=== PATIENT | female | born 1995 | race Caucasian/White ===

== ENCOUNTER 2022-12-13 13:24 | Outpatient (CLI) | payer SELFPAY ==
[2022-12-13 15:08] LABS: Appearance,Urine Cloudy (Clear); Bilirubin,Urine Negative (Negative); Blood,Urine Negative (Negative); Color,Urine Yellow; Glucose,Urine (UA) Negative (Negative); Ketones,Urine 4+ (Negative); Protein,Urine 2+ (Negative); Specific Gravity,Urine >1.030 (1.001-1.035)
[2022-12-13 15:09] LABS: Leukocyte Esterase,Urine Negative (Negative); Nitrite,Urine Negative (Negative)
[2022-12-13 15:10] LABS: Bacteria,Urine Few /hpf; Hyaline Casts,Urine 4 /lpf (0-2); Mucus,Urine Many /hpf; RBC,Urine 1 /hpf (0-5); Squamous Epithelial Cell,Urine 10 /hpf (0-4); WBC,Urine 6 /hpf (0-5)
[2022-12-13] MEDS ORDERED: ONDANSETRON 4 MG/2 ML VIAL IVP STA (15:33)
[2022-12-13] MEDS: DEXTROSE 5%-LACTATED RINGERS 1,000 ML IV ONE ×3 (15:57→17:34)
[2022-12-13] MEDS ORDERED: CALCIUM CARBONATE 500 MG CHEWABLE PO PRN (17:55)
[2022-12-13 19:05] VITALS: BP 119/60; PULSE 64; RESP 16; TEMP 98.4
--- NOTE | 2023-01-08 10:59 | P.MSEPDOC ---
Presenting Problems - Arrival Data Date of Arrival on Unit: 12/13/22 Time of Arrival on Unit: 14:30 Mode of Transport: Ambulatory - Complaint OB-Reason for Admission/Chief Complaint: Acute Nausea/Vomiting Medical History - Information : 1 Para: 0 Number of Living Children: 0 - Gestational Age Gestational Age by CARMEN (wks/days): 25 Weeks and 3 Days Review of Systems - Review of Systems Constitutional: No problems Breast: No problems ENT: No problems Cardiovascular: No problems Respiratory: No problems Gastrointestinal: No problems Genitourinary: No problems Musculoskeletal: No problems Neurological: No problems Skin: No problems Vital Signs - Temperature Temperature: 98.4 F Temperature Source: Axillary - Pulse Right Sitting Brachial Pulse Rate: 64 Pulse Assessment Method: Automatic Cuff - Respirations Respiratory Rate: 16 Oxygen Delivery Method: Room Air O2 Sat by Pulse Oximetry: 99 - Blood Pressure Right Arm Sitting Blood Pressure: 119/60 Blood Pressure Mean: 79 Blood Pressure Source: Automatic Cuff Physician Notification - Physician Notified Physician Notified Date: 12/13/22 Physician Notified Time: 17:00 Physician: Esteban Lyn Order Received: Yes (IV hydrate) Maternal Triage Index - Maternal Triage Index Presenting for scheduled procedure w/no complaint: No - Stat/Priority 1 Stat Priority 1: No - Urgent/Priority 2 Urgent Priority 2: No - Prompt/Priority 3 Prompt Priority 3: No - Non-Urgent/Priority 4 Non-Urgent Priority 4: Yes Criteria Met for Priority 4: N&V Disposition - Disposition OB Disposition: Observe, Triage, Discharge to home Discharge Date: 12/13/22 Discharge Time: 18:30 I agree with the RN Medical Screening Exam: Yes Physician's MSE Comment: I have neither seen nor examined the patient. Case reviewed; plan agreed upon as documented in EMR&OBIX.: Yes Diagnosis: RELATED CONDITIONS, UNSPECIFIED, SECOND TRIMESTER
== END 2022-12-13 18:30 | disposition home or self-care (01) ==
LOC: FBPOP 13:24
PROVIDERS: ATTEND Obstetrics & Gynecology
DX: O21.9 Vomiting of pregnancy, unspecified (principal); Z3A.25 25 weeks gestation of pregnancy
CPT/HCPCS: 99204; 96361; 96365; 96374; 96375; 81001; J2405

== ENCOUNTER 2023-12-19 10:36 | Observation (INO) | payer OTHER ==
--- NOTE | 2023-12-19 11:19 | ED ---
Chest Pain HPI - General Chief Complaint: Chest Pain Stated Complaint: Chest Pressure Time Seen by Provider: 12/19/23 10:48 Source: patient, EMS, RN notes reviewed Mode of arrival: EMS Limitations: no limitations - History of Present Illness Initial Comments: This is a 28-year-old female who presents to the emergency department for chest pain. Patient states that she has felt generally weak and unwell over the last couple of days. Around 8 AM she started to develop centralized chest pain and nausea. Pain is described as a pressure sensation. She was given Zofran and nitroglycerin by EMS without any relief in symptoms. Patient bradycardic with a heart rate in the 30s. States that her heart rate is usually in the 90s. States that she feels very dizzy and lightheaded. She has mild shortness of breath. MD Complaint: chest pain - Related Data Home Medications Medication Instructions Recorded Confirmed No Known Home Medications 12/13/22 12/19/23 Allergies Allergy/AdvReac Type Severity Reaction Status Date / Time No Known Allergies Allergy Verified 12/19/23 11:30 Review of Systems ROS Statement: Those systems with pertinent positive or pertinent negative responses have been documented in the HPI. ROS Other: All systems not noted in ROS Statement are negative. Past Medical History Past Medical History: No Reported History History of Any Multi-Drug Resistant Organisms: None Reported Past Surgical History: No Surgical Hx Reported Smoking Status: Current every day smoker Past Alcohol Use History: Occasional Past Drug Use History: Marijuana General Exam Limitations: no limitations General appearance: alert, in distress Head exam: Present: atraumatic, normocephalic, normal inspection Respiratory exam: Present: normal lung sounds bilaterally. Absent: respiratory distress, wheezes, rales, rhonchi, stridor Cardiovascular Exam: Present: normal rhythm, bradycardia GI/Abdominal exam: Present: soft, normal bowel sounds. Absent: distended, tenderness, guarding, rebound, rigid Neurological exam: Present: alert, oriented X3, CN II-XII intact Psychiatric exam: Present: normal affect, normal mood Skin exam: Present: warm, dry, intact, normal color. Absent: rash Course Vital Signs 12/19/23 12/19/23 12/19/23 10:39 11:55 12:26 Temperature 97.9 F Pulse Rate 36 L 111 H 97 Respiratory 14 18 18 Rate Blood Pressure 137/78 146/91 144/91 O2 Sat by Pulse 99 99 Oximetry 12/19/23 13:55 Temperature Pulse Rate 43 L Respiratory 18 Rate Blood Pressure 112/77 O2 Sat by Pulse 97 Oximetry Chest Pain MDM - MDM This is a 28 year old female who presents to the emergency department for chest pain. Was pt. sent in by a medical professional or institution? @ -No Did you speak to anyone other than the patient for history? @ -No Did you review nursing and triage notes? @ -Yes, and I agree, it is accurate with regards to the patient's symptoms. Were old charts reviewed? @ -No Differential Diagnosis? @ -Differential Chest Pain: Stable Angina, Unstable Angina, STEMI, NSTEMI Aortic Dissection, Pneumothorax, Musculoskeletal, Esophageal Spasm GERD, Cholecystitis, Pancreatitis, Zoster, this is not meant to be an all-inclusive list. EKG interpreted by me (3pts min.)? @ -EKG interpreted by me demonstrating the following: Sinus bradycardia. Ventricular rate 40 bpm, GA interval 145 ms, QRS duration 106 ms, QTc 485 ms. X-rays interpreted by me (1pt min.)? @ -Chest x-ray obtained, my interpretation identifies no localized consolida tions or infiltrates. CT interpreted by me (1pt min.)? @ -Not obtained U/S interpreted by me (1pt. min.)? @ -Not obtained What testing was considered but not performed? (CT, X-rays, U/S, labs)? Why? @ -None What meds were considered but not given? Why? @ -None Did you discuss the management of the patient with other professionals? @ -Yes, Dr. Miller, who accepts the patient for admission. Did you reconcile home meds? @ -No Was smoking cessation discussed for >3mins.? @ -No Was critical care preformed (if so, how long)? @ -No Were there social determinants of health that impacted care today? How? (Homelessness, low income, unemployed, alcoholism, drug addiction, transportation, low edu. Level, literacy, decrease access to med. care, half-way, rehab)? @ -No Was there de-escalation of care discussed even if they declined? (Discuss DNR or withdrawal of care, Hospice)? @ -No What co-morbidities impacted this encounter? (DM, HTN, Smoking, COPD, CAD, Cancer, CVA, Hep., AIDS, mental health diagnosis, sleep apnea, morbid obesity)? @ -None Was patient admitted / discharged? @ -Admitted. Lab work demonstrates leukocytosis with a white blood cell count of 12.9. She has mild hypokalemia with a potassium of 3.4. Patient had fairly symptomatic bradycardia on arrival with her heart rate in the mid to low 30s. QT prolonged at 555. 0.5 mg of atropine administered with good response. Patient was given multiple antiemetics with only temporary improvement in nausea. She also continued to complain of chest discomfort and feeling lightheaded and dizzy. About 2 hours after being given the atropine she started to become bradycardic again with heart rate dropping back into the 30s. Patient admitted to medicine for observation of symptomatic bradycardia and chest pain. Serial troponins ordered. Consult placed for cardiology. Case discussed with ED attending Dr. Duong. Undiagnosed new problem with uncertain prognosis? @ -None Drug Therapy requiring intensive monitoring for toxicity (Heparin, Nitro, Insulin, Cardizem)? @ -None Were any procedures done? @ -None Diagnosis/symptom? @ -Symptomatic bradycardia, chest pain Acute, or Chronic, or Acute on Chronic? @ -Acute Uncomplicated (without systemic symptoms) or Complicated (systemic symptoms)? @ -Complicated Side effects of treatment? @ -None Exacerbation, Progression, or Severe Exacerbation] @ -Not applicable Poses a threat to life or bodily function? @ -Yes, can lead to life threatening arrhythmias Disposition Clinical Impression: Chest pain, Symptomatic bradycardia Disposition: ADMITTED IP TO THIS HOSP
[2023-12-19] MEDS: ATROPINE SULFATE 0.1 MG/ML 10ML SYRINGE IV STA ×2 (11:45→12:25)
[2023-12-19] MEDS: ONDANSETRON 4 MG/2 ML VIAL IVP STA (11:46)
[2023-12-19] MEDS: KETOROLAC 15 MG/ML 1 ML VIAL IVP STA (11:46)
[2023-12-19] MEDS: SODIUM CHLORIDE 0.9% 1,000 ML IV STA (11:54)
[2023-12-19 12:09] LABS: ALT 10 U/L (4-34); AST 14 U/L (14-36); African American GFR (CKD) >90 (>60 ml/min/1.73 sqM); Albumin 4.2 g/dL (3.5-5.0); Alkaline Phosphatase 63 U/L (38-126); Anion Gap 7 mmol/L; Blood Urea Nitrogen 14 mg/dL (7-17); Carbon Dioxide 24 mmol/L (22-30); Chloride 108 mmol/L (98-107); Glucose 155 mg/dL (74-99); Magnesium 1.8 mg/dL (1.6-2.3); Non-African American GFR(CKD) >90 (>60 ml/min/1.73 sqM); Potassium 3.4 mmol/L (3.5-5.1); Sodium 139 mmol/L (137-145); Total Bilirubin 0.7 mg/dL (0.2-1.3); Total Protein 6.9 g/dL (6.3-8.2)
[2023-12-19 12:15] LABS: Basophils # (A) 0.1 k/uL (0-0.2); Basophils % (A) 0 %; Eosinophils % (A) 0 %; HCT 39.5 % (34.0-46.0); HGB 12.9 gm/dL (11.4-16.0); Lymphocytes # (A) 0.9 k/uL (1.0-4.8); Lymphocytes % (A) 7 %; MCH 30.6 pg (25.0-35.0); MCHC 32.7 g/dL (31.0-37.0); MCV 93.5 fL (80.0-100.0); Mean Platelet Volume 10.2; Monocytes # (A) 0.5 k/uL (0-1.0); Monocytes % (A) 4 %; Neutrophils # (A) 11.3 k/uL (1.3-7.7); Neutrophils % (A) 88 %; Platelet Count 176 k/uL (150-450); RBC 4.23 m/uL (3.80-5.40); RDW 12.6 % (11.5-15.5); WBC 12.9 k/uL (3.8-10.6)
[2023-12-19] MEDS: PROCHLORPERAZINE INJ 10 MG/2 ML VIAL IVP STA (12:23)
[2023-12-19] MEDS: SODIUM CHLORIDE 0.9% 500 ML 500 ML IV STA (12:25)
[2023-12-19 12:36] LABS: Partial Thromboplastin Time 22.3 sec (22.0-30.0); Prothrombin Time 11.2 sec (10.0-12.5)
[2023-12-19] MEDS ORDERED: HYDROmorphone 0.5 MG/0.5 ML SYRINGE IVP STA (13:29)
--- NOTE | 2023-12-19 13:35 | XR ---
EXAMINATION TYPE: XR chest 2V DATE OF EXAM: 12/19/2023 1:04 PM COMPARISON: None. CLINICAL INDICATION: Female, 28 years old with history of Chest Pain, TECHNIQUE: XR chest 2V view(s) obtained. FINDINGS: The heart size is normal. The pulmonary vasculature is normal. The lungs are clear. IMPRESSION: 1. No acute pulmonary process. [facility], , 12/19/2023 1:33 PM
[2023-12-19] MEDS: FAMOTIDINE 20 MG/2 ML VIAL IV STA (13:46)
[2023-12-19] MEDS: METOCLOPRAMIDE 5 MG/ML 2 ML VIAL IVP STA (13:53)
[2023-12-19] MEDS: MORPHINE SULFATE 4 MG/ML SYRINGE IVP STA (13:54)
[2023-12-19] MEDS: POTASSIUM CHLORIDE 20 MEQ in WATER FOR INJECTION 1 100ML.BAG IVPB STA (14:23)
[2023-12-19 14:26] LABS: Appearance,Urine Clear (Clear); Bacteria,Urine Rare /hpf; Bilirubin,Urine Negative (Negative); Blood,Urine Trace (Negative); Color,Urine Yellow; Glucose,Urine (UA) Trace (Negative); Ketones,Urine 3+ (Negative); Leukocyte Esterase,Urine Negative (Negative); Mucus,Urine Many /hpf; Nitrite,Urine Negative (Negative); PH, Urine 6.5 (5.0-8.0); Protein,Urine 1+ (Negative); RBC,Urine 2 /hpf (0-5); Specific Gravity,Urine 1.027 (1.001-1.035); Squamous Epithelial Cell,Urine 4 /hpf (0-4); Urobilinogen,Urine <2.0 mg/dL (<2.0); WBC,Urine 3 /hpf (0-5)
[2023-12-19] MEDS ORDERED: KETOROLAC 15 MG/ML 1 ML VIAL IVP PRN (14:33)
[2023-12-19] MEDS ORDERED: ACETAMINOPHEN TAB 325 MG TAB PO PRN (14:33)
[2023-12-19] MEDS ORDERED: NALOXONE 0.4 MG/ML 1 ML VIAL IV PRN (14:33)
[2023-12-19] MEDS ORDERED: MORPHINE SULFATE 4 MG/ML SYRINGE IV PRN (14:33)
[2023-12-19] MEDS ORDERED: ONDANSETRON 4 MG/2 ML VIAL IVP PRN (14:33)
[2023-12-19 14:45] LABS: Amphetamine Screen,Urine Detected (NotDetected); Barbiturate Screen,Urine Not Detected (NotDetected); Benzodiazepines Screen,Urine Not Detected (NotDetected); Cocaine Screen,Urine Not Detected (NotDetected); Methadone Screen, Urine Not Detected (NotDetected); Opiate Screen,Urine Detected (NotDetected); Oxycodone Screen, Urine Not Detected (NotDetected); Phencyclidine Screen,Urine Not Detected (NotDetected); Tricyclic Antidepressant,Urine Not Detected (NotDetected); Urn Cannabinoid Scrn Detected (NotDetected)
--- NOTE | 2023-12-19 15:37 | P.HPIM ---
History of Present Illness H&P Date: 12/19/23 History of Presenting Illness: Patient is a 28-year-old femalewith a past medical history of nicotine dependence. Pt reports recurrent episodes of GI upset accompanied by diffuse abdominal pain and persistant nausea and anorexia with inability to eat for a week or more at a time. Patient reports over the past few days she has again began to experience a diffuse abdominal pain, inability to eat, and persistent nausea. She reports the symptoms are similar to previous episodes but states worsening over the past few days and today she began experiencing chest pain accompanied by dizziness/lightheadedness so she came to the emergency department for evaluation. She denies having any recent fevers, chills, diaphoresis, palpitations, shortness of breath, cough or congestion, vomiting, hematemesis, constipation, diarrhea, melena, hematochezia, or experiencing any changes in her difficulties with urinary function. On arrival to our facility, patient underwent evaluation in the emergency department. Vital signs upon arrival show blood pressure 137/78, heart rate 36, respiratory rate 14, temp 97.9 F, and SpO2 of 99% on room air. EKG completed showing sinus bradycardia at 40 bpm with a prolonged QT/QTc of 555/485 ms. Chest x-ray negative for acute cardiopulmonary process. Labs completed and reviewed. CBC showing leukocytosis with WBC count of 12.9. Coagulation profile normal findings. BMP showing hypokalemia with potassium of 3.4 and hyperchloremia with chloride of 108. Blood glucose 155. Lactic acid 1.5. Magnesium 1.8. Liver profile unremarkable. Troponin less than 0.012. TSH 1.610. Urinalysis negative for infection positive for protein, glucose, and ketones. Urine drug screen positive for opiates, amphetamines, and marijuana. Urine hCG negative. Patient received atropine 0.5 mg IVP x 1 dose and was admitted under our services with consultation to cardiology for symptomatic bradycardia and chest pain and gastroenterology. Review of systems: P.ertinent positives and negatives as discussed in HPI, a complete review of systems was performed and all other systems are negative. Physical exam: Vital signs reviewed and stable. General: Nontoxic, no distress and appears stated age. Derm: Skin warm and dry, normal coloration for ethnicity. Head: Atraumatic, normocephalic and symmetric. Eyes: EOM's intact, no lid lag, and anicteric sclera Mouth: no lip lesions, mucus membranes moist Cardiovascular: Bradycardic rate and regular rhythm with normal S1S2, no murmur, positive posterior tibial pulses bilaterally, and cap refill < 2 seconds. Lungs: Respirations even, regular, and unlabored on room air. Lungs CTA bilaterally, no rhonchi, no rales, no wheezing, and no accessory muscle usage. Abdominal: soft, diffuse tenderness upon palpation, no guarding, no appreciable organomegaly Ext: ROM intact. No gross muscle atrophy, no edema, no contractures Neuro: Speech clear, face symmetrical and CN II-XII grossly intact with no noted focal neuro deficits Psych: Alert and oriented to person, place, time, and situation. Appropriate and pleasant affect. Assessment and Plan of Care: Symptomatic Bradycardia Prolonged QT Chest pain, dizzinenss and lightheadedness -Patient received atropine 0.5 mg IVP x 1 dose in the emergency department. -Consult placed to cardiology. -Patient to remain on continuous telemetry monitoring. -Avoid all QT prolonging medications. -TSH normal findings at 1.610. Abdominal pain Nausea and anorexia -Order placed for CT abdomen and pelvis with IV contrast -Tigan 200 mg IM every 6 hours as needed for nausea and vomiting, avoid QT prolonging antiemetics. -Carafate 1 g 4 times daily. -Clear liquid diet. -Consult placed to gastroenterology, discussed with gastroenterology BATCH OPERATOR. -Urine drug screen positive for amphetamines, opiates, and marijuana. Patient denies history of IVDA. Nicotine dependence -Recommend smoking cessation. Order placed for nicotine patch 14 mg daily. Data and imaging reviewed As stated above in HPI The patient is admitted with an anticipated greater than 2 midnight stay for evaluation of symptomatic bradycardia CODE STATUS: Full code DVT prophylaxis: SCDs Anticipated discharge date: Pending clinical course Anticipated discharge place: Home Patient was seen independently by Nurse Practitioner. This document was prepared using [employer] dictation software. Please allow for errors in courier while rare they do occur. Donovan Lovell NP rendered care for this patient independently, reviewed the findings and plan as documented in the note above. I did not physically speak with or examine the patient on this date. Past Medical History Past Medical History: No Reported History History of Any Multi-Drug Resistant Organisms: None Reported Past Surgical History: No Surgical Hx Reported Smoking Status: Current every day smoker Past Alcohol Use History: Occasional Past Drug Use History: Marijuana Medications and Allergies Home Medications Medication Instructions Recorded Confirmed Type No Known Home Medications 12/13/22 12/19/23 History Allergies Allergy/AdvReac Type Severity Reaction Status Date / Time No Known Allergies Allergy Verified 12/19/23 11:30 Physical Exam Vitals: Vital Signs Temp Pulse Resp BP Pulse Ox 12/19/23 13:55 43 L 18 112/77 97 12/19/23 12:26 97 18 144/91 12/19/23 11:55 111 H 18 146/91 99 12/19/23 10:39 97.9 F 36 L 14 137/78 99 Intake and Output 12/19/23 12/19/23 12/19/23 06:59 14:59 22:59 Other: Weight 81.647 kg Results CBC & Chem 7: 12/19/23 12:08 12/19/23 11:42 Labs: Abnormal Lab Results - Last 24 Hours (Table) 12/19/23 12/19/23 12/19/23 Range/Units 11:42 12:08 14:17 WBC 12.9 H (3.8-10.6) k/uL Neutrophils # 11.3 H (1.3-7.7) k/uL Lymphocytes # 0.9 L (1.0-4.8) k/uL Potassium 3.4 L (3.5-5.1) mmol/L Chloride 108 H (98-107) mmol/L Glucose 155 H (74-99) mg/dL Urine Protein 1+ H (Negative) Urine Glucose (UA) Trace H (Negative) Urine Ketones 3+ H (Negative) Urine Blood Trace H (Negative) Urine Bacteria Rare H (None) /hpf Urine Mucus Many H (None) /hpf Urine Opiates Screen Detected H (NotDetected) Ur Amphetamines Screen Detected H (NotDetected) U Marijuana (THC) Screen Detected H (NotDetected)
--- NOTE | 2023-12-19 16:20 | CT ---
EXAMINATION TYPE: CT abdomen pelvis w con DATE OF EXAM: 12/19/2023 4:09 PM COMPARISON: None CLINICAL INDICATION: Female, 28 years old with history of abdominal pain, anorexia; abdominal pain, a norexia and nausea TECHNIQUE: Axial CT abdomen pelvis w con;Sagittal and coronal reformats were created on a separate w orkstation. Contrast used:80ml mL of Isovue 300 with IV Contrast, (none if empty) Oral contrast used: without Oral Contrast (none if empty) CT DLP: 814.7 mGycm, Automated exposure control for dose reduction was used. FINDINGS: LOWER CHEST: Unremarkable ABDOMEN LIVER: Unremarkable GALLBLADDER AND BILE DUCTS: Unremarkable. PANCREAS: Unremarkable. SPLEEN: Unremarkable. ADRENAL GLANDS: Unremarkable. KIDNEYS AND URETERS: No evidence of hydronephrosis or renal calculus. The ureters are unremarkable. PELVIS BLADDER: No evidence for wall thickening or mass given limitations of exam. REPRODUCTIVE: Unremarkable. ABDOMEN & PELVIS STOMACH AND BOWEL: No evidence of bowel obstruction. Mild inflammation changes thought to be present along the right colon ascending colon specifically. The appendix is visualized and normal. PERITONEUM/RETROPERITONEUM: No evidence of pneumoperitoneum or free fluid. VASCULATURE: No evidence of aortic aneurysm. MUSCULOSKELETAL: No acute osseous abnormalities LYMPH NODES: No gross evidence for lymphadenopathy. SOFT TISSUE/ABDOMINAL WALL: Unremarkable IMPRESSION: Mild colitis suggested involving the ascending colon. The appendix is normal. No other acute abdomina l process identified.[facility], , 12/19/2023 4:17 PM
[2023-12-19] MEDS: SODIUM CHLORIDE 0.9% 1,000 ML IV SCH (18:08)
[2023-12-19] MEDS: NICOTINE 14MG/24HR PATCH TRANSDERM SCH (19:08)
[2023-12-19] MEDS: SUCRALFATE 1 GM TAB PO SCH (23:15)
[2023-12-20] MEDS: TRIMETHOBENZAMIDE 100 MG/ML 2 ML VIAL IM PRN (00:41)
[2023-12-20 07:06] VITALS: RESP 18
[2023-12-20] MEDS ORDERED: PANTOPRAZOLE 40 MG/10 ML VIAL IV SCH (09:00)
[2023-12-20] MEDS: hydroCHLOROthiazide 12.5 MG CAP PO SCH (09:12)
--- NOTE | 2023-12-20 09:41 | P.CRDCN ---
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 She has a past medical history of preeclampsia d iagnosed 1 year ago with her . We have been asked to evaluate her for symptomatic bradycardia and chest pain. Patient gives history that yesterday she developed a hard time breathing and then developed tingling of her extremities, following that she developed vomiting and was not able to keep anything down. Patient states that she has had problems with this in the past and no etiology was determined. She states she still has some nausea this morning. Regarding her blood pressure, she states she did have preeclampsia and blood pressure has been running high. She does vape both tobacco and marijuana and recommended that she quit vaping. She denies any alcohol use and no drug us e. She continues to have some nausea and abdominal pain today. No diarrhea today. Discussed use of event monitor and possible outpatient stress testing. Patient is also complaining of skin lesions that she has had all over her body for the past month. EKG: Sinus rhythm at 40 bpm with QTc prolongation Chest x-ray: No acute process CT of the abdomen pelvis: Mild colitis in the ascending colon Laboratory studies: Troponin negative x 3. WBC 12.9, hemoglobin 12.9, sodium 139, potassium 3.4, magnesium 1.8, creatinine 0.56. TSH 1.61. hCG negative. Urine drug screen positive for amphetamines, opiates, marijuana. Home cardiac medications: None Review Of Systems: At the time of my exam: CONSTITUTIONAL: Denies fever or chills. HEENT: Denies blurred vision, vision changes, or eye pain. Denies hemoptysis CARDIOVASCULAR: Denies chest pain. Denies orthopnea. Denies PND. Denies palpitations RESPIRATORY: Denies shortness of breath. GASTROINTESTINAL: Reports abdominal discomfort. Denies nausea or vomiting. HEMATOLOGIC: Denies bleeding disorders. GENITOURINARY: Denies any blood in urine. SKIN: Denies puritis. Denies rash. Physical examination: Gen: This is a 28-year-old female in no acute distress VS: reviewed HEENT: Head is atraumatic, normocephalic. Pupils equal, round. Sclerae is anicteric. NECK: Supple. No JVD. LUNGS: Clear to auscultation. No wheezes or rhonchi. No intercostal retractions. HEART: Regular rate and rhythm. No murmur. ABDOMEN: Soft No tenderness. EXTREMITIES: No pedal edema. No calf tenderness. NEUROLOGICAL: Patient is awake, alert and oriented x3. Assessment: Atypical chest pain, acute coronary syndrome ruled out Bradycardia Abdominal discomfort, nausea, anorexia Tobacco use and dependence Drug screen positive for opiates, amphetamines and marijuana Skin lesions Plan: Avoid all AV gamal blockers Start patient on hydrochlorothiazide 12.5 mg daily Discussed lifestyle changes Patient is agreeable to stop vaping Obtain 2-D echocardiogram and Doppler study to assess cardiac structure and function Patient is cleared for discharge and may follow-up in the office in 1 to 2 weeks and will discuss event monitor to further assess bradycardia and also outpatient stress testing. Thank you kindly for this consultation. Nurse practitioner note has been reviewed, I agree with documented findings and plan of care. Patient was seen and examined. Past Medical History Past Medical History: No Reported History History of Any Multi-Drug Resistant Organisms: None Reported Past Surgical History: No Surgical Hx Reported Smoking Status: Current every day smoker Past Alcohol Use History: Occasional Past Drug Use History: Marijuana Medications and Allergies Home Medications Medication Instructions Recorded Confirmed Type No Known Home Medications 12/13/22 12/19/23 History Allergies Allergy/AdvReac Type Severity Reaction Status Date / Time No Known Allergies Allergy Verified 12/19/23 11:30 Physical Exam Vitals: Vital Signs Temp Pulse Pulse Resp BP Pulse Ox 12/20/23 07:36 40 L 12/20/23 07:05 42 L 18 150/91 99 12/20/23 05:17 48 L 16 99/58 99 12/20/23 00:50 53 L 16 113/70 100 12/19/23 22:00 49 L 18 126/79 97 12/19/23 21:00 59 L 18 108/64 97 12/19/23 20:00 50 L 18 111/74 96 12/19/23 19:00 64 18 137/90 96 12/19/23 16:41 40 L 18 150/100 98 12/19/23 13:55 43 L 18 112/77 97 12/19/23 12:26 97 18 144/91 12/19/23 11:55 111 H 18 146/91 99 12/19/23 10:39 97.9 F 36 L 14 137/78 99 Results 12/19/23 12:08 12/19/23 11:42 Cardiac Enzymes 12/19/23 12/19/23 12/19/23 Range/Units 11:42 12:08 14:54 AST 14 (14-36) U/L Troponin I <0.012 <0.012 (0.000-0.034) ng/mL 12/19/23 Range/Units 17:49 AST (14-36) U/L Troponin I <0.012 (0.000-0.034) ng/mL Coagulation 12/19/23 Range/Units 12:08 PT 11.2 (10.0-12.5) sec APTT 22.3 (22.0-30.0) sec CBC 12/19/23 Range/Units 12:08 WBC 12.9 H (3.8-10.6) k/uL RBC 4.23 (3.80-5.40) m/uL Hgb 12.9 (11.4-16.0) gm/dL Hct 39.5 (34.0-46.0) % Plt Count 176 (150-450) k/uL Comprehensive Metabolic Panel 12/19/23 Range/Units 11:42 Sodium 139 (137-145) mmol/L Potassium 3.4 L (3.5-5.1) mmol/L Chloride 108 H (98-107) mmol/L Carbon Dioxide 24 (22-30) mmol/L BUN 14 (7-17) mg/dL Creatinine 0.56 (0.52-1.04) mg/dL Glucose 155 H (74-99) mg/dL Calcium 9.0 (8.4-10.2) mg/dL AST 14 (14-36) U/L ALT 10 (4-34) U/L Alkaline Phosphatase 63 (38-126) U/L Total Protein 6.9 (6.3-8.2) g/dL Albumin 4.2 (3.5-5.0) g/dL Current Medications Generic Name Dose Route Start Last Admin Trade Name Freq PRN Reason Stop Dose Admin Acetaminophen 650 mg 12/19/23 14:33 Acetaminophen Tab 325 Mg Tab PO Q6HR PRN Mild Pain or Fever > 100.5 Sodium Chloride 1,000 mls @ 75 mls/hr 12/19/23 14:45 12/20/23 05:19 Saline 0.9% IV 75 mls/hr .[id number] KEV Administration Ketorolac Tromethamine 15 mg 12/19/23 14:33 Ketorolac 15 Mg/Ml 1 Ml Vial IVP 12/22/23 14:34 Q6HR PRN Moderate Pain (Scale 4 to 6) Morphine Sulfate 4 mg 12/19/23 14:33 Morphine Sulfate 4 Mg/Ml Syringe IV Q4HR PRN Severe Pain (Scale 7 to 10) Naloxone HCl 0.2 mg 12/19/23 14:33 Naloxone 0.4 Mg/Ml 1 Ml Vial IV Q2M PRN Opioid Reversal Nicotine 1 patch 12/20/23 19:00 Nicotine 14mg/24hr Patch TRANSDERM DAILY@1900 KEV Sucralfate 1 gm 12/19/23 21:00 12/20/23 07:25 Sucralfate 1 Gm Tab PO 1 gm ACHS KEV Administration Trimethobenzamide HCl 200 mg 12/19/23 18:19 12/20/23 07:06 Trimethobenzamide 100 Mg/Ml 2 Ml Vial IM 200 mg Q6HR PRN Administration Nausea And Vomiting 12/19/23 12:08 12/19/23 11:42
--- NOTE | 2023-12-20 11:24 | CA ---
Transthoracic Echo Report Name: Clau Branch Age: 28 Gender: F : 1995 Exam Date: 12/20/2023 09:23 Exam Location: [facility] Ht (in): 67 Wt (lb): 180 Ordering Physician: Donovan Lovell Attending/Referring Phys: Dag Coater Jinny Barragan RDCS Procedure CPT: Indications: CP, symptomatic bradycardia, prolonged QT Cardiac Hx: Technical Quality: Good Contrast 1: Total Dose (mL): Contrast 2: Total Dose (mL): MEASUREMENTS (Male / Female) Normal Values 2D ECHO LV Diastolic Diameter PLAX 5.2 cm 4.2 - 5.9 / 3.9 - 5.3 cm LV Systolic Diameter PLAX 3.5 cm IVS Diastolic Thickness 0.8 cm 0.6 - 1.0 / 0.6 - 0.9 cm LVPW Diastolic Thickness 0.9 cm 0.6 - 1.0 / 0.6 - 0.9 cm LV Relative Wall Thickness 0.3 RV Internal Dim ED PLAX 2.0 cm LA Systolic Diameter LX 3.7 cm 3.0 - 4.0 / 2.7 - 3.8 cm LV Diastolic Volume MOD BP 67.4 cm??? 67 - 155 / 56 - 104 cm??? LV Systolic Volume MOD BP 20.3 cm??? 22 - 58 / 19 - 49 cm??? LV Ejection Fraction MOD BP 69.9 % >= 55 % LV Cardiac Index MOD BP 974.2 cm???/min???m??? LV Diastolic Volume MOD 4C 70.9 cm??? LV Systolic Volume MOD 4C 17.7 cm??? LV Ejection Fraction MOD 4C 75.0 % LV Cardiac Index MOD 4C 1099.8 cm???/min???m??? LV Diastolic Length 4C 7.5 cm LV Systolic Length 4C 5.4 cm LV Diastolic Volume MOD 2C 60.6 cm??? LV Systolic Volume MOD 2C 23.1 cm??? LV Ejection Fraction MOD 2C 61.9 % LV Cardiac Index MOD 2C 775.1 cm???/min???m??? LV Diastolic Length 2C 7.1 cm LV Systolic Length 2C 5.6 cm LA Volume 45.5 cm??? 18 - 58 / 22 - 52 cm??? LA Volume Index 22.9 cm???/m??? 16 - 28 cm???/m??? M-MODE Aortic Root Diameter MM 3.4 cm LA Systolic Diameter MM 2.8 cm LA Ao Ratio MM 0.8 AV Cusp Separation MM 2.1 cm DOPPLER AV Peak Velocity 157.6 cm/s AV Peak Gradient 9.9 mmHg MV Area PHT 2.5 cm??? Mitral E Point Velocity 100.4 cm/s Mitral A Point Velocity 56.2 cm/s Mitral E to A Ratio 1.8 MV Deceleration Time 307.1 ms TR Peak Velocity 276.6 cm/s TR Peak Gradient 30.6 mmHg Right Ventricular Systolic Press 35.1 mmHg FINDINGS Left Ventricle Left ventricular ejection fraction is estimated at 55-60%. Normal left ventricular systolic function with no obvious regional wall motion abnormalities. Left ventricular cavity size normal. Right Ventricle Normal right ventricular size and function. Mild pulmonary hypertension. Right Atrium Normal right atrial size. Left Atrium Normal left atrial size. Mitral Valve Structurally normal mitral valve. Mild mitral regurgitation. No mitral stenosis. Aortic Valve Trileaflet aortic valve. No aortic valve stenosis or regurgitation. Tricuspid Valve Structurally normal tricuspid valve. Mild-tricuspid regurgitation. No tricuspid stenosis. Pulmonic Valve Structurally normal pulmonic valve. Trace pulmonic regurgitation. No pulmonic stenosis. Pericardium No pericardial or pleural effusion. Aorta Normal size aortic root and proximal ascending aorta. CONCLUSIONS Normal LV function Mild mitral regurgitation Mild tricuspid regurgitation Previewed by: Dr. Roby Pedraza MD (Electronically Signed) Final Date: 20 December 2023 11:23
--- NOTE | 2023-12-20 12:35 | P.DS ---
Providers Date of admission: 12/19/23 14:54 Expected date of discharge: 12/20/23 Attending physician: Kalia Miller MD Consults: 12/19/23 14:33 Consult Physician Urgent Consulting Provider: Victorino Barfield Consult Reason/Comments: Symptomatic bradycardia, chest pain Do you want consulting provider notified?: Yes 12/19/23 17:49 Consult Physician Routine Consulting Provider: Tori Pedraza Consult Reason/Comments: mild colitis, reports recurrent issues with nausea Do you want consulting provider notified?: Yes Primary care physician: Stated None Hospital Course: Discharge Diagnosis: Symptomatic Bradycardia Prolonged QT Chest pain, dizzinenss and lightheadedness. Resolved. Abdominal pain Nausea and anorexia Nicotine dependence Hospital Course: Patient is a 28-year-old femalewith a past medical history of nicotine dependence. Pt reports recurrent episodes of GI upset accompanied by diffuse abdominal pain and persistant nausea and anorexia with inability to eat for a week or more at a time. Patient reports over the past few days she has again began to experience a diffuse abdominal pain, inability to eat, and persistent nausea. She reports the symptoms are similar to previous episodes but states worsening over the past few days and today she began experiencing chest pain accompanied by dizziness/lightheadedness so she came to the emergency department for evaluation. She denies having any recent fevers, chills, diaphoresis, palpitations, shortness of breath, cough or congestion, vomiting, hematemesis, constipation, diarrhea, melena, hematochezia, or experiencing any changes in her difficulties with urinary function. On arrival to our facility, patient underwent evaluation in the emergency department. Vital signs upon arrival show blood pressure 137/78, heart rate 36, respiratory rate 14, temp 97.9 F, and SpO2 of 99% on room air. EKG completed showing sinus bradycardia at 40 bpm with a prolonged QT/QTc of 555/485 ms. Chest x-ray negative for acute cardiopulmonary process. Labs completed and reviewed. CBC showing leukocytosis with WBC count of 12.9. Coagulation profile normal findings. BMP showing hypokalemia with p otassium of 3.4 and hyperchloremia with chloride of 108. Blood glucose 155. Lactic acid 1.5. Magnesium 1.8. Liver profile unremarkable. Troponin less than 0.012. TSH 1.610. Urinalysis negative for infection positive for protein, glucose, and ketones. Urine drug screen positive for opiates, amphetamines, and marijuana. Urine hCG negative. Patient received atropine 0.5 mg IVP x 1 dose and was admitted under our services with consultation to cardiology for symptomatic bradycardia and chest pain and gastroenterology. Echocardiogram was completed showing a preserved EF of 55 to 60% with mild mitral and tricuspid regurgitation otherwise normal findings. Patient was evaluated by cardiology and started on hydrochlorothiazide 12.5 mg daily. Cardiology recommending patient follow-up outpatient in their office for placement of event monitor and clearing patient from cardiac perspective for discharge. Patient also evaluated by gastroenterology and clearing patient from their perspective for outpatient follow-up. Patient was given Tigan 200 mg IM x 2 doses and reports full resolution of nausea and abdominal pain. Patient requesting discharge and has been cleared from cardiology and gastroenterology perspective. She is tolerating a clear liquid diet and instructed to advance her diet slowly starting with BERNA diet (bananas, rice, applesauce, and toast along with other bland non-spicy non-greasy's foods) and advance as tolerated.. Patient instructed she will need to follow-up outpatient and establish care with a PCP, photographer portrait for event monitor placement, and stone breaker. Physical exam: Vital signs reviewed and stable. General: Nontoxic, no distress and appears stated age. Derm: Skin warm and dry, normal coloration for ethnicity. Head: Atraumatic, normocephalic and symmetric. Eyes: EOM's intact, no lid lag, and anicteric sclera Mouth: no lip lesions, mucus membranes moist Cardiovascular: Bradycardic rate and regular rhythm with normal S1S2, no murmur, positive posterior tibial pulses bilaterally, and cap refill < 2 seconds. Lungs: Respirations even, regular, and unlabored on room air. Lungs CTA brian aterally, no rhonchi, no rales, no wheezing, and no accessory muscle usage. Abdominal: soft, diffuse tenderness upon palpation, no guarding, no appreciable organomegaly Ext: ROM intact. No gross muscle atrophy, no edema, no contractures Neuro: Speech clear, face symmetrical and CN II-XII grossly intact with no noted focal neuro deficits Psych: Alert and oriented to person, place, time, and situation. Appropriate and pleasant affect. A total of 35 minutes of time were spent preparing this complex discharge summary. Pt was discharged on12/20/23 at 12:24 PM. Patient was seen independently by Nurse Practitioner. This document was prepared using [employer] dictation software. Please allow for errors in marketing performance analyst while rare they do occur. Donovan Lovell NP rendered care for this patient independently, reviewed the findings and plan as documented in the note above. I did not physically speak with or examine the patient on this date. Patient Condition at Discharge: Stable Plan - Discharge Summary New Discharge Prescriptions: New Sucralfate [Carafate] 1 gm PO ACHS 30 Days #120 tab hydroCHLOROthiazide [Hydrodiuril] 12.5 mg PO DAILY 30 Days #30 cap Discharge Medication List Sucralfate [Carafate] 1 gm PO ACHS 30 Days #120 tab 12/20/23 [Rx] hydroCHLOROthiazide [Hydrodiuril] 12.5 mg PO DAILY 30 Days #30 cap 12/20/23 [Rx] Follow up Appointment(s)/Referral(s): Victorino Barfield MD [Medical Doctor] - 2 Weeks Thierry Castellanos MD [REFERRING] - 1-2 Days (Please call and schedule first available appointment at residency clinic for establishment of primary care provider) Tori Pedraza MD [STAFF PHYSICIAN] - 2 Weeks Patient Instructions/Handouts: Gastritis (DC), Bradycardia (DC) Activity/Diet/Wound Care/Special Instructions: Activity: As tolerated. Take breaks as needed. Diet: Advance diet slowly. Start with BERNA diet (bananas, rice, applesauce, and toast along with other bland non-spicy non-greasy's foods) and advance as tolerated.. Special Instructions: Take all of your medications as directed and remember to keep all of your doctor's appointments and follow-up as needed. As discussed you will need to follow-up outpatient in cardiology office for placement of event monitor. If you stay in [place] and do not return to [place] it is also highly recommended that you call and schedule appointment at residency clinic as discussed for establishment of care by PCP and follow-up with stone breaker in 2 weeks. Thank you for allowing us to participate in your care, it was truly a pleasure having you for our patient!!! Discharge Disposition: HOME SELF-CARE
[2023-12-20 12:49] VITALS: BP 127/87; PULSE 46; TEMP 98.3
--- NOTE | 2023-12-20 13:06 | P.CONS ---
History of Present Illness - Reason for Consult Consult date: 12/20/23 Mild colitis, reports recurrent issues with nausea Requesting physician: Donovan Lovell - Chief Complaint Chest pain - History of Present Illness This is a pleasant 28-year-old female who had presented to the emergency department yesterday with complaints of chest pain and generalized weakness over the last couple of days. Apparently when EMS evaluated patient her heart rate was in the 30s and she was having some dizziness and lightheaded. During her hospital stay she was reporting that she has chronic nausea with some intermittent episodes of vomiting. She states that this has been going on for several years since the age of 16. She states it gets worse with anxiety. She states she is having a lot of anxiety and lives in [place] but is out of a recent relationship and came to [place]. States that she would get multiple episodes in the past of nausea and vomiting. This had subsided since she had her daughter. Patient was positive for opiates, amphetamines and THC. States that she does not smoke marijuana regularly but did smoke some when she came to [facility]. Has seen GI in the past in [place] for nausea and vomiting but then she got and did not return. States she has had this nausea with vomiting for last 2 days duration also associated with some diarrhea. Denies any fevers or chills. She had a CT of the abdomen pelvis that showed some mild colitis. She denies any abdominal pain, is feeling anxious so she states that she has still having some nausea with vomiting. Denies any hematemesis. Apparently case management had seen patient also putting her fingers down her throat intentionally making herself vomit. Admitting labs WBC 12.9 hemoglobin 12.9 platelet count 176,000 INR 1.0 sodium 139 potassium 3.4 BUN 14 creatinine 0.5 total bilirubin 0.7 AST 14 ALT 10 alkaline phosphatase 63 troponins negative x 3 Review of Systems REVIEW OF SYSTEMS: CARDIOPULMONARY: No chest pain or shortness of breath. Gastrointestinal: No abdominal pain. Nausea with vomiting over the last 2 days duration associated with diarrhea. Nonbloody. No hematemesis, coffee-ground emesis. No rectal bleeding, or melena. GENITOURINARY: No dysuria or hematuria. MUSCULOSKELETAL: Reports normal range of motion. SKIN: No rashes. No jaundice. ENDOCRINE: No chills, fevers. No excessive weight gain or loss. No polydipsia or polyuria. PSYCHIATRIC: Unremarkable. NEUROLOGY: No change in mental status. Denies dizziness, headache. ENT: Vision unremarkable. CONSTITUTIONAL: No recent weight loss. No fever, chills, night sweats. Past Medical History Past Medical History: No Reported History History of Any Multi-Drug Resistant Organisms: None Reported Past Surgical History: No Surgical Hx Reported Smoking Status: Current every day smoker Past Alcohol Use History: Occasional Past Drug Use History: Marijuana Medications and Allergies Home Medications Medication Instructions Recorded Confirmed Type Sucralfate [Carafate] 1 gm PO ACHS 30 Days #120 tab 12/20/23 Rx hydroCHLOROthiazide [Hydrodiuril] 12.5 mg PO DAILY 30 Days #30 cap 12/20/23 Rx Allergies Allergy/AdvReac Type Severity Reaction Status Date / Time No Known Allergies Allergy Verified 12/19/23 11:30 Physical Exam Vitals: Vital Signs Temp Pulse Pulse Resp BP Pulse Ox 12/20/23 09:13 60 18 104/75 99 12/20/23 07:36 40 L 12/20/23 07:05 42 L 18 150/91 99 12/20/23 05:17 48 L 16 99/58 99 12/20/23 00:50 53 L 16 113/70 100 12/19/23 22:00 49 L 18 126/79 97 12/19/23 21:00 59 L 18 108/64 97 12/19/23 20:00 50 L 18 111/74 96 12/19/23 19:00 64 18 137/90 96 12/19/23 16:41 40 L 18 150/100 98 12/19/23 13:55 43 L 18 112/77 97 12/19/23 12:26 97 18 144/91 12/19/23 11:55 111 H 18 146/91 99 12/19/23 10:39 97.9 F 36 L 14 137/78 99 General appearance: The patient is alert, oriented, appears in no acute distress. HET: Head is normocephalic and atraumatic. Conjunctiva pink. Sclera anicteric. Neck: Supple without lymphadenopathy. Trachea midline. Heart: Regular. Lungs: Equal expansion, normal respiratory effort. Abdomen: Soft, nontender, nondistended. Skin: No rashes. No jaundice. Extremities: Normal skin color and turgor. No pedal edema. Neurological: No focal deficits. Alert and oriented x3. Results CBC & Chem 7: 12/19/23 12:08 12/19/23 11:42 Labs: Abnormal Lab Results - Last 24 Hours (Table) 12/19/23 12/19/23 12/19/23 Range/Units 11:42 12:08 14:17 WBC 12.9 H (3.8-10.6) k/uL Neutrophils # 11.3 H (1.3-7.7) k/uL Lymphocytes # 0.9 L (1.0-4.8) k/uL Potassium 3.4 L (3.5-5.1) mmol/L Chloride 108 H (98-107) mmol/L Glucose 155 H (74-99) mg/dL Urine Protein 1+ H (Negative) Urine Glucose (UA) Trace H (Negative) Urine Ketones 3+ H (Negative) Urine Blood Trace H (Negative) Urine Bacteria Rare H (None) /hpf Urine Mucus Many H (None) /hpf Urine Opiates Screen Detected H (NotDetected) Ur Amphetamines Screen Detected H (NotDetected) U Marijuana (THC) Screen Detected H (NotDetected) Comments: CT abdomen pelvis with contrast reports thank you mild colitis suggested involving the ascending colon. Appendix is normal. No other acute abdominal process identified. Assessment and Plan (1) Nausea and vomiting Narrative/Plan: 28-year-old presenting with chest pain and bradycardia also with complaints of chronic intermittent nausea and vomiting that she has had since the age of 16. She has not had any recent episodes since she got of her daughter up until couple days ago. She states she started having nausea and vomiting associated with diarrhea. No hematemesis and no bloody stool. CT abdomen and pelvis shows some mild ascending colitis. Patient has a long history of anxiety and states that she recently got out of a relationship and came to [place]. States that she has noticed that she has had increased nausea and vomiting when she is anxious. Nausea and vomiting could be secondary to IBS versus patient may have an acute gastroenteritis as she also has been having diarrhea over the last couple days duration as well. Also discussed with patient cyclic vomiting secondary to cannabinoid use. Recommend outpatient follow-up with gastroenterology. Will also obtain celiac panel. Current Visit: Yes Status: Acute Code(s): R11.2 - NAUSEA WITH VOMITING, UNSPECIFIED SNOMED Code(s): 00369034 (2) Chest pain Current Visit: Yes Status: Acute Code(s): R07.9 - CHEST PAIN, UNSPECIFIED SNOMED Code(s): 94016319 (3) Symptomatic bradycardia Current Visit: Yes Status: Acute Code(s): R00.1 - BRADYCARDIA, UNSPECIFIED SNOMED Code(s): 85361804 Plan: 1. Continue symptomatic and supportive care 2. Antiemetics as needed 3. Celiac panel ordered 4. Continue with cardiology workup 5. No plans on any endoscopic evaluation 6. Recommend marijuana abstinence 7. Recommend outpatient follow-up with gastroenterology, patient states that she has a gastroenterology that she has seen in [place] Thank you for this consultation. Dr. Lydia Pedraza I agree with the dictator's note, documented as a scribe by Jessica Perez.
[2023-12-20 16:37] LABS: Gliadin AB IgA, Deaminated Negative (Negative); Gliadin AB IgA, Unit <0.5 U/mL; Gliadin AB IgG, Deaminated Negative (Negative); Gliadin AB IgG, Unit <0.4 U/mL
[2023-12-20] MEDS ORDERED: NICOTINE 14MG/24HR PATCH TRANSDERM SCH (19:00)
== END 2023-12-20 12:49 | disposition home or self-care (01) ==
LOC: EC 10:36 → 6NMEDSUR 14:54 → 3SCARD 17:38 → 6NMEDSUR 12-20 10:49
PROVIDERS: ADMIT Internal Medicine; ATTEND Internal Medicine
DX: R07.89 Other chest pain (principal); R00.1 Bradycardia, unspecified; E87.6 Hypokalemia; E87.8 Other disorders of electrolyte and fluid balance, not elsewhere classified; R94.31 Abnormal electrocardiogram [ECG] [EKG]; R42 Dizziness and giddiness; K52.9 Noninfective gastroenteritis and colitis, unspecified; L98.9 Disorder of the skin and subcutaneous tissue, unspecified; F17.200 Nicotine dependence, unspecified, uncomplicated; Z79.899 Other long term (current) drug therapy
CPT/HCPCS: 96361; 96365; 96366; 96372; 96375; 99285; 36415; 93005; 93306; 80053; 84443; 83605; 83735; 84484; 85025; 85610; 85730; 81001; 81025; 80306; 83516 ×4; 71046; 74177; G0378 ×4; S4990; J2270; J0780; J2765; J3250; J3480; J2405; J0461; J3490; J1885; Q9967